=== PATIENT | female | born 1990 | race Two or more races ===

== ENCOUNTER 2024-04-23 08:53 | Outpatient (REF) | payer OTHER, MEDICAID, SELFPAY ==
[2024-04-23 17:57] LABS: MANUAL DIFF FLAG NO
[2024-04-23 18:02] LABS: Basophils Percent Auto 0.4 % (0-2); Eosinophils Absolute Auto 0.2 X10*3/uL (0.0-0.4); Eosinophils Percent Auto 2.3 % (0-4); Hematocrit 37.6 % (37.0-47.0); Hemoglobin 11.9 g/dl (12.0-16.0); Imm Gran Abs Auto 0.07 X10*3/uL (0.00-0.03); Imm Gran Pct Auto 0.9 % (0.0-0.4); Lymphocytes Percent Auto 26.6 % (20-40); Mean Corpuscular HGB Conc 31.6 g/dl (31.0-35.0); Mean Corpuscular Hemoglobin 27.6 pg (27.0-33.0); Mean Corpuscular Volume 87.2 fL (80.0-98.0); Mean Platelet Volume 9.8 fL (9.4-12.3); Monocytes Absolute Auto 0.7 X10*3/uL (0.1-1.2); Monocytes Percent Auto 9.4 % (2-11); Neutrophils Absolute Auto 4.5 x10*3/uL (2.0-8.3); Neutrophils Percent Auto 60.4 % (45-73); Platelet Count 292 X10*3/uL (160-400); Red Blood Count 4.31 X10*6/uL (4.20-5.50); White Blood Count 7.4 X10*3/uL (4.8-10.8)
[2024-04-23 18:17] LABS: Alanine Aminotransferase 40 U/L (0-31); Aspartate Amino Transferase 66 U/L (5-31); C Reactive Protein 1.25 mg/dL (< or = 0.50); Estimated Glomerular Filt Rate > 60
[2024-04-23 18:46] LABS: Rheumatoid Factor 397.1 IU/mL (<15.0)
[2024-04-23 18:52] LABS: Erythrocyte Sedimentation Rate 84 MM/HR (0-20)
[2024-04-24 04:28] LABS: HBS Num1 2.36 mIU/mL (0-7.99); HBc Num1 0.32 S/CO (0.00-0.79); HBsAGNum1 0.38 S/CO (0.00-0.99); Hepatitis B Core Antibody Nonreactive (Nonreactive); Hepatitis B Surface Antigen Negative (Negative); ~HepC Num1 0.18 S/CO (0.00-0.79); ~Hepatitis B Surface Antibody NONREACTIVE (Nonreactive); ~Hepatitis C Antibody Nonreactive (Nonreactive)
[2024-04-24 17:28] LABS: Antibody to SS-A Antigen >8.0 POS AI (<1.0 NEG); Antibody to SS-B Antigen >8.0 POS AI (<1.0 NEG)
[2024-04-26 02:54] LABS: TS Negative Control Passed; TS Panel A 1; TS Panel B 0; TS Positive Control Passed; TSpotTB Negative (Negative)
[2024-04-28 06:48] LABS: Cyclic Citrullinated Peptide >250 UNITS
[2024-04-29 08:28] LABS: Anti Nuclear Antibody Pattern Nuclear, Speckled; Anti Nuclear Antibody Screen POSITIVE (NEGATIVE)
== END 2024-04-23 08:54 | disposition home or self-care (01) ==
LOC: HO.HKASLDS 08:53
PROVIDERS: Visit Provider Internal Medicine Rheumatology
DX: M19.90 Unspecified osteoarthritis, unspecified site (principal); Z79.60 Long term (current) use of unspecified immunomodulators and immunosuppressants; Z11.1 Encounter for screening for respiratory tuberculosis; Z11.59 Encounter for screening for other viral diseases
CPT/HCPCS: 36415; 82565; 84450; 84460; 85025; 85652; 86038; 86039; 86140; 86200; 86235; 86431; 86481; 86704; 86706; 86803; 87340

== ENCOUNTER 2024-04-23 08:53 | Outpatient (AMB) | payer OTHER, MEDICAID, SELFPAY ==
[2024-04-23 09:24] VITALS: BP 130/74; PULSE 102; O2SAT 99; BMI 57.6
--- NOTE | 2024-04-23 09:24 | A.OFFVIS_ITS ---
Vital Signs 04/23/24 09:24 Height 5 ft 7 in Weight 368 lb BMI 57.6 BP 130/74 Blood Pressure Location Lt brachial Position Sitting Pulse 102 H Pulse Source Pulse Oximeter Pulse Oximetry (%) 99 Oxygen Delivery Method Room Air Intake Visit Reasons: Auto Immune Intake Note: Patient presents for follow up on auto immune disease. Allergies hydromorphone Allergy (Mild, Verified 04/23/24 09:30) Anaphylaxis ibuprofen Allergy (Mild, Verified 04/23/24 09:31) Rash HPI HPI Auto Immune: Details: I last saw patient at the [facility] at least 4 years. Patient was diagnosed with autoimmune disease but patient cannot recall. Patient has been scheduled as follow-up visit. I do not have any records from [facility]. Her mother and she became depressed and did not seek medical attention for herself. She has developed swelling in multiple joints and has limited ability to function and care for herself leading to her seeking evaluation. She has used ibuprofen, Aleve and Tylenol with benefit. She has presented to ER and received prednisone with benefit. She denies fevers. She has a facial rash. She has history of asthma with baseline dyspnea but does not report that it has worsened. She also reports that she has pleuritic chest pain. She has developed purplish toes when exposed to cold temperatures. She has dry eyes and dry mouth. Denies oral ulcers. Denies urinary symptoms. She fractured her left ankle a few months ago. She did not see Orthopedic surgery. She used a boot and reports she was able to bear weight on her left foot. It continues to be swollen. [facility] Surgical History (Updated 04/23/24 @ 09:33 by Hansa Quiroz CMA) H/O heart surgery Family History (Updated 04/23/24 @ 09:36 by Hansa Quiroz CMA) Mother Heart failure Diabetes High cholesterol Hypertension Sister Diabetes Heart failure High cholesterol Hypertension Social History (Updated 04/23/24 @ 09:37 by Hansa Quiroz CMA) Household Members: Family Alcohol intake: never Patient Tobacco Use Status: Current everyday Tobacco user Cigarettes Per Day: 2 Review of Systems Const All systems reviewed & are unremarkable except as noted in HPI and below Physical Exam Vital Signs: Last Vital Signs Pulse 102 H 04/23/24 09:24 BP 130/74 04/23/24 09:24 Pulse Ox 99 04/23/24 09:24 Oxygen Delivery Method Room Air 04/23/24 09:24 BMI result Body Mass Index 57.6 Const Other: General: Comfortable CVS: RRR Respiratory: clear to auscultation bilaterally. Good respiratory effort Skin: No lesions seen MSK: Tender to palpate all joints. Synovitis bilateral MCPs, right and left 3rd and right 5th PIP with tenderness with synovitis. Bilateral elbow flexion contractures. Shoulder abduction 80 degrees bilateral with limited internal external rotation both actively and passively. Bilateral ankles synovitis present left worse than right. Bilateral MTP tenderness. Diffuse allodynia of upper extremities and lower extremities. Assessment & Plan Assessment & Plan (1) Inflammatory arthritis: Comment: She has synovitis on exam consistent with inflammatory arthritis. She has sicca symptoms, Raynaud's affecting her feet, and pleurisy. I will start workup for connective tissue disease with labs and x-rays. She had a fracture of her left ankle a few months ago and continues to have chronic swelling affecting her left ankle. I will order stat left ankle x-ray to find out if fracture has healed as it affects future management of her inflammatory arthritis. Code(s): M19.90 - Unspecified osteoarthritis, unspecified site Category: Medical Plan: X-rays ordered Labs ordered Requesting records from [facility] Return to clinic in 2 weeks (2) Ankle fracture, left: Comment: She has chronic swelling of left ankle since fracture of ankle a few months ago. I am ordering x-ray stat to determine if her fracture has healed Code(s): S82.892A - Other fracture of left lower leg, initial encounter for closed fracture Category: Medical Qualifiers: Encounter type: initial encounter Plan: X-ray left ankle ordered stat Return to clinic in 2 weeks (3) Fibromyalgia: Comment: Diffuse allodynia is consistent with fibromyalgia Code(s): M79.7 - Fibromyalgia Category: Medical Plan: Defer management PCP Orders: Orders Erythrocyte Sedimentation Rate Today M19.90 - Unspecified osteoarthritis, unspecified site C Reactive Protein Today M19.90 - Unspecified osteoarthritis, unspecified site Creatinine Today Z79.60 - [facility] (current) use of unspecified immunomodulators and immunosuppressants Sjogren's Antibodies Today M19.90 - Unspecified osteoarthritis, unspecified site Hepatitis B,C Profile Today M19.90 - Unspecified osteoarthritis, unspecified site XR hand RT min 3V Today M19.90 - Unspecified osteoarthritis, unspecified site XR hand LT min 3V Today M19.90 - Unspecified osteoarthritis, unspecified site XR shoulder RT min 2V Today M19.90 - Unspecified osteoarthritis, unspecified site XR foot RT 2V Today M19.90 - Unspecified osteoarthritis, unspecified site XR ankle LT 2V Today S82.892A - Other fracture of left lower leg, initial encounter for closed fracture XR elbow LT 2V Today M19.90 - Unspecified osteoarthritis, unspecified site Alanine Aminotransferase Today Z79.60 - termination clerk (current) use of unspecified immunomodulators and immunosuppressants Aspartate Amino Transferase Today Z79.60 - termination clerk (current) use of unspecified immunomodulators and immunosuppressants Complete Blood Count Auto Diff Today Z79.60 - termination clerk (current) use of unspecified immunomodulators and immunosuppressants LUPE Reflex Titer and Pattern Today M19.90 - Unspecified osteoarthritis, unspecified site Cyclic Citrullinated Peptide Today M19.90 - Unspecified osteoarthritis, unspecified site Rheumatoid Factor Today M19.90 - Unspecified osteoarthritis, unspecified site T Spot TB Today M19.90 - Unspecified osteoarthritis, unspecified site XR shoulder LT min 2V Today M19.90 - Unspecified osteoarthritis, unspecified site XR foot LT 2V Today M19.90 - Unspecified osteoarthritis, unspecified site XR elbow RT 2V Today M19.90 - Unspecified osteoarthritis, unspecified site Coding Level of Care Code New Pt Level 4 (83570) Diagnoses Inflammatory arthritis M19.90 Ankle fracture, left S82.892A Encounter type: initial encounter Fibromyalgia M79.7
== END 2024-04-23 10:12 | disposition home or self-care (01) ==
LOC: HO.RHES 08:53
PROVIDERS: Visit Provider Internal Medicine Rheumatology
DX: M19.90 Unspecified osteoarthritis, unspecified site (principal); S82.892A Other fracture of left lower leg, initial encounter for closed fracture; M79.7 Fibromyalgia
CPT/HCPCS: 99204

== ENCOUNTER 2024-05-01 08:05 | Outpatient (REF) | payer OTHER, SELFPAY ==
--- NOTE | ~2024-05-01 | XR_ITS ---
EXAMINATION: XR HAND, LEFT CLINICAL INFORMATION: M19.90 - Unspecified osteoarthritis, unspecified site COMPARISON: None available. TECHNIQUE: PA, lateral, and oblique views of the left hand. FINDINGS: The bones and soft tissues are normal. No fracture. Alignment is anatomic. Joint spaces are maintained. No erosions or soft tissue calcifications. XR/XR hand LT min 3V IMPRESSION: Normal left hand. Electronically signed by: Han Freitas MD 05/01/2024 10:05 AM SOHAM
--- NOTE | ~2024-05-01 | XR_ITS ---
EXAMINATION: XR SHOULDER, LEFT CLINICAL INFORMATION: M19.90 - Unspecified osteoarthritis, unspecified site COMPARISON: None available. TECHNIQUE: AP external rotation, Grashey, scapular Y, and axillary views of the left shoulder. FINDINGS: The bones and soft tissues are normal. No fracture. Glenohumeral and acromioclavicular alignment is anatomic with normal joint space. No abnormal soft tissue calcifications. XR/XR shoulder LT min 2V IMPRESSION: Normal left shoulder. Electronically signed by: Han Freitas MD 05/01/2024 10:01 AM SOHAM
--- NOTE | ~2024-05-01 | XR_ITS ---
EXAMINATION: XR ANKLE, LEFT CLINICAL INFORMATION: S82.264F - Other fracture of left lower leg, initial encounter for close... COMPARISON: None available. TECHNIQUE: AP, lateral, and mortise views of the left ankle. FINDINGS: Normal bone mineralization. Normal alignment. No definite acute fracture evident. Corticated osseous densities just beneath the lateral malleolus may be degenerative or on the basis of old trauma. There is a medially projecting hooked osteophyte arising from the medial malleolus. The mortise is intact. The talar dome is normal. The subtalar joints and intertarsal joints are normal. There are small to moderate-sized plantar and dorsal calcaneal spurs. No definite ankle joint effusion. There is diffuse soft tissue swelling about the ankle. XR/XR ankle LT 2V IMPRESSION: 1. No definite acute fracture seen. No dislocation. Preserved mortise. 2. Diffuse soft tissue swelling about the ankle. Electronically signed by: Fransisco Lance MD 05/01/2024 10:02 AM SOHAM
--- NOTE | ~2024-05-01 | XR_ITS ---
EXAMINATION: XR ELBOW, LEFT CLINICAL INFORMATION: M19.90 - Unspecified osteoarthritis, unspecified site COMPARISON: None available. TECHNIQUE: AP, lateral, and oblique views of the left elbow. FINDINGS: No fracture, dislocation, or suspicious bone lesion. There is normal alignment of the elbow joint. No significant bony arthrosis or erosion identified. Joint spaces preserved. Epicondyles appear normal. There is an elbow joint effusion present. This may be on the basis of inflammatory synovitis. Soft tissues appear normal. XR/XR elbow LT 2V IMPRESSION: 1. No acute bony abnormalities or evidence of bony changes of inflammatory arthropathy. Normal alignment. 2. Joint effusion present, likely on the basis of inflammatory synovitis in the absence of trauma. Electronically signed by: Fransisco Lance MD 05/01/2024 10:37 AM SOHAM
--- NOTE | ~2024-05-01 | XR_ITS ---
EXAMINATION: XR FOOT, RIGHT CLINICAL INFORMATION: M19.90 - Unspecified osteoarthritis, unspecified site COMPARISON: None available. TECHNIQUE: AP, lateral, and oblique views of the right foot. FINDINGS: Normal bony mineralization. No fracture, dislocation, or suspicious bone lesion. There is normal alignment. There is mild arthritis at the first MTP joint with a subtle punched out appearing periarticular erosion. This may indicate the presence of gout. There is a large plantar calcaneal spur. There is a tiny dorsal spur. Otherwise, the forefoot, midfoot, and hindfoot image normally. No discrete soft tissue abnormalities. XR/XR foot RT 2V IMPRESSION: 1. No acute fracture or dislocation. No malalignment. 2. Mild arthritis in the first MTP joint with a marginal erosion as detailed, suspicious for gouty arthropathy. 3. Large plantar calcaneal enthesophyte. Electronically signed by: Fransisco Lance MD 05/01/2024 10:33 AM SOHAM
--- NOTE | ~2024-05-01 | XR_ITS ---
EXAMINATION: XR FOOT, LEFT CLINICAL INFORMATION: M19.90 - Unspecified osteoarthritis, unspecified site COMPARISON: None available. TECHNIQUE: AP, lateral, and oblique views of the left foot. FINDINGS: The bones and soft tissues are normal. No fracture. Alignment is anatomic. Joint spaces are maintained. There is a small calcaneal heel and retrocalcaneal enthesophytes. XR/XR foot LT 2V IMPRESSION: No acute fracture or dislocation. Small calcaneal heel and retrocalcaneal enthesophytes. Electronically signed by: Han Freitas MD 05/01/2024 10:02 AM SOHAM QURESHI
--- NOTE | ~2024-05-01 | XR_ITS ---
EXAMINATION: XR HAND, RIGHT CLINICAL INFORMATION: M19.90 - Unspecified osteoarthritis, unspecified site COMPARISON: None available. TECHNIQUE: PA, lateral, and oblique views of the right hand. FINDINGS: The bones and soft tissues are normal. No fracture. Alignment is anatomic. Joint spaces are maintained. No erosions or soft tissue calcifications. XR/XR hand RT min 3V IMPRESSION: Unremarkable right hand. Electronically signed by: Han Freitas MD 05/01/2024 10:04 AM SOHAM
--- NOTE | ~2024-05-01 | XR_ITS ---
EXAMINATION: XR SHOULDER, RIGHT CLINICAL INFORMATION: M19.90 - Unspecified osteoarthritis, unspecified site COMPARISON: None available. TECHNIQUE: AP external rotation, Grashey, scapular Y, and axillary views of the right shoulder. FINDINGS: The bones and soft tissues are normal. No fracture. Glenohumeral and acromioclavicular alignment is anatomic with normal joint space. No abnormal soft tissue calcifications. XR/XR shoulder RT min 2V IMPRESSION: Unremarkable right shoulder. Electronically signed by: Han Freitas MD 05/01/2024 10:01 AM SOHAM
--- NOTE | ~2024-05-01 | XR_ITS ---
EXAMINATION: XR ELBOW, RIGHT CLINICAL INFORMATION: M19.90 - Unspecified osteoarthritis, unspecified site COMPARISON: None available. TECHNIQUE: AP, lateral, and oblique views of the right elbow. FINDINGS: The bones and soft tissues are normal. No fracture or joint effusion. Alignment is anatomic. Joint spaces are maintained. There is a small enthesophyte along the anterior coronoid process XR/XR elbow RT 2V IMPRESSION: Normal right elbow. Electronically signed by: Han Freitas MD 05/01/2024 10:03 AM SOHAM QURESHI
== END 2024-05-01 08:06 | disposition home or self-care (01) ==
LOC: HO.XRAY 08:05
PROVIDERS: Visit Provider Internal Medicine Rheumatology
DX: M19.90 Unspecified osteoarthritis, unspecified site (principal); S82.892A Other fracture of left lower leg, initial encounter for closed fracture; M25.40 Effusion, unspecified joint
CPT/HCPCS: 73030; 73070; 73130; 73600; 73620

== ENCOUNTER → 2024-05-01 08:12 | Outpatient (BNV) | payer OTHER, SELFPAY | PROVIDERS: Visit Provider Radiology Diagnostic Radiology | DX: M19.011 Primary osteoarthritis, right shoulder (principal); M19.012 Primary osteoarthritis, left shoulder; M19.041 Primary osteoarthritis, right hand; M19.042 Primary osteoarthritis, left hand; M19.021 Primary osteoarthritis, right elbow; M19.022 Primary osteoarthritis, left elbow; S82.892A Other fracture of left lower leg, initial encounter for closed fracture; M19.071 Primary osteoarthritis, right ankle and foot; M19.072 Primary osteoarthritis, left ankle and foot | CPT/HCPCS: 73030; 73070; 73130; 73600; 73620 ==

== ENCOUNTER 2024-05-08 10:18 | Outpatient (REF) | payer OTHER, MEDICAID, SELFPAY ==
[2024-05-08 17:51] LABS: Appearance Urine Cloudy; Color Urine Yellow; Glucose Urine UA Negative (Negative); Leukocyte Esterase Urine Negative (Negative); Nitrite Urine Negative (Negative); UMIC TRIGGER UA YES; Urine Blood Small (1+) (Negative); Urine Ketones Negative (Negative); Urine Protein 100 (2+) mg/dL (Neg-Trace)
[2024-05-08 18:09] LABS: Bacteria Urine 2+ (None Seen); Hyaline Casts Urine 0-2 /LPF (0-2); RBC Urine 0-2 /HPF (0-2); WBC Urine 0-5 /HPF (0-5)
[2024-05-08 18:17] LABS: Creatinine Urine 146.48 mg/dL; Protein/Creatinine Ratio, Ur 0.42 (<0.2); Total Protein Urine Random 62 mg/dL (<12)
[2024-05-08 18:48] LABS: Alanine Aminotransferase 46 U/L (0-31); Alkaline Phosphatase 49 U/L (39-117); Aspartate Amino Transferase 64 U/L (5-31); Bilirubin Direct < 0.2 mg/dL (0.0-0.5); Bilirubin Total 0.2 mg/dL (0.0-1.0); Total Protein 8.9 g/dL (6.5-8.0)
[2024-05-09 12:33] LABS: Complement C3 169 mg/dL (83-193)
[2024-05-09 16:33] LABS: Anti DNA DS Antibody <1 IU/mL; SM/Ribonucleoprotein Ab <1.0 NEG AI (<1.0 NEG); Smith Protein <1.0 NEG AI (<1.0 NEG)
[2024-05-17 15:33] LABS: Glucose-6-Phosphate Dehydrogen 21.3 U/g Hgb (7.0-20.5)
== END 2024-05-08 10:19 | disposition home or self-care (01) ==
LOC: HO.HKASLDS 10:18
PROVIDERS: Visit Provider Internal Medicine Rheumatology
DX: R74.01 Elevation of levels of liver transaminase levels (principal); M19.90 Unspecified osteoarthritis, unspecified site; R35.0 Frequency of micturition
CPT/HCPCS: 36415; 80076; 81001; 82570; 82955; 84156; 86160; 86225; 86235; 87086

== ENCOUNTER 2024-05-08 10:18 | Outpatient (AMB) | payer OTHER, MEDICAID, SELFPAY ==
[2024-05-08 10:30] VITALS: BP 130/80; PULSE 98; O2SAT 99; BMI 57.0
--- NOTE | 2024-05-08 10:30 | A.OFFVIS_ITS ---
Vital Signs 05/08/24 10:30 Height 5 ft 7 in Weight 364 lb 4 oz BMI 57.0 BP 130/80 Blood Pressure Location Lt brachial Position Sitting Pulse 98 Pulse Source Pulse Oximeter Pulse Oximetry (%) 99 Oxygen Delivery Method Room Air Intake Visit Reasons: 2 WKS F/U Intake Note: Patient presents for follow up on inflammatory arthritis and left ankle fracture. She was last seen by Dr. Lopez on 04/23/2024. Also, labs and x-rays. Patient would like to talk about PT 1 form. Allergies hydromorphone Allergy (Mild, Verified 04/23/24 09:30) Anaphylaxis ibuprofen Allergy (Mild, Verified 04/23/24 09:31) Rash HPI HPI 2 WKS F/U: Details: She has not had any difference on prednisone. She continues to have joint pain and swelling. She has a history of prediabetes and feels that her blood sugars are elevated. She does not have a glucometer at home to check. She is on metformin prescribed by her PCP for prediabetes. Since being on prednisone her GERD symptoms have worsened. In the past she was on PPI without benefit. [facility] Surgical History (Updated 04/23/24 @ 09:33 by Hansa Quiroz CMA) H/O heart surgery Family History (Updated 04/23/24 @ 09:36 by Hansa Quiroz CMA) Mother Heart failure Diabetes High cholesterol Hypertension Sister Diabetes Heart failure High cholesterol Hypertension Social History (Updated 04/23/24 @ 09:37 by Hansa Quiroz CMA) Household Members: Family Alcohol intake: never Patient Tobacco Use Status: Current everyday Tobacco user Cigarettes Per Day: 2 Review of Systems Const All systems reviewed & are unremarkable except as noted in HPI and below Physical Exam Vital Signs: Last Vital Signs Pulse 98 05/08/24 10:30 BP 130/80 05/08/24 10:30 Pulse Ox 99 05/08/24 10:30 Oxygen Delivery Method Room Air 05/08/24 10:30 BMI result Body Mass Index 57.0 Const Other: General: Comfortable CVS: RRR Respiratory: clear to auscultation bilaterally. Good respiratory effort Skin: No lesions seen MSK: Tender to palpate all joints. Synovitis bilateral MCPs, right and left 3rd and right 5th PIP with tenderness with synovitis. Bilateral elbow flexion contractures. Shoulder abduction 90 degrees bilateral with limited internal external rotation both actively and passively. Bilateral ankles synovitis present left worse than right. Bilateral MTP tenderness. Diffuse allodynia of upper extremities and lower extremities. Assessment & Plan Assessment & Plan (1) Inflammatory arthritis: Comment: She has synovitis on exam consistent with inflammatory arthritis. She has sicca symptoms, Raynaud's affecting her feet, and pleurisy. Laboratory workup has revealed positive LUPE high titer, SSA/SSB antibody positivity. We discussed her diagnosis of Sjogren syndrome with associated inflammatory arthritis. I will further workup for systemic lupus erythematosus with more specific antibodies and disease activity markers to further define her disease. She is experiencing GERD and feels that her blood sugars are elevated on current dose of prednisone 15 mg daily. She does require higher dose of prednisone to control inflammatory arthritis in the short term until I am able to add steroid sparing agent. I have asked her to communicate with PCP to obtain glucometer and management of diabetes. I will also start GI prophylaxis on prednisone with famotidine in setting of her elevated liver enzymes. [facility] records reviewed and reveal recent CT abd shows moderate fat containing umbilical hernia with trace adjacent stranding that may indicate incarceration or strangulation of the associated fat. Hepatic steatosis. She will be following up with surgeon. Rheumatology history from medical records received [facility]: She was previously evaluated by me at the [facility] when she was 21 weeks gestation. She was found to have high titer positive LUPE 1:1280, positive anti SSA and SSB antibodies and highly elevated ESR. She did not have any lupus specific antibodies or activity markers at the time. 01/2020 she was referred to ENT for minor salivary gland biopsy as she had malar rash, hair loss and dry mouth. Patient was lost to follow-up. Code(s): M19.90 - Unspecified osteoarthritis, unspecified site Category: Medical Plan: She will increase prednisone to 40 mg daily for 1 week then 30 mg daily for 1 week then 20 mg daily for 1 week then remain on 10 mg daily until follow-up visit PCP follow-up for diabetes management Start famotidine 10 mg b.i.d. for GI prophylaxis. She will call office if GERD symptoms are unchanged. I will then increase famotidine to 20 mg b.i.d. I recommended that she try Biotene products to help control dry mouth OTC Labs ordered this visit I will start hydroxychloroquine 400 mg daily after lab results are back. I am avoiding methotrexate and leflunomide due to background history of hepatic steatosis with mild transaminitis. (2) Urinary frequency: Code(s): R35.0 - Frequency of micturition Category: Medical Plan: Urine studies ordered with urine culture Orders: Orders Complement C4 05/08/24 - Unspecified osteoarthritis, unspecified site Sm Sm/[employer] Antibodies 05/08/24 M1 - Unspecified osteoarthritis, unspecified site Anti DNA DS Antibody 05/08/24 M1 - Unspecified osteoarthritis, unspecified site, R74.01 - Elevation of levels of liver transaminase levels Protein Creatinine Ratio, Ur 05/08/24 - Unspecified osteoarthritis, unspecified site UA w Microscopic 05/08/24 - Unspecified osteoarthritis, unspecified site Urine Culture 05/08/24 R35.0 - Frequency of micturition Complement C3 05/08/24 - Unspecified osteoarthritis, unspecified site Liver Panel 05/08/24 R74.01 - Elevation of levels of liver transaminase levels [id number] Dehydrogen 05/08/24 - Unspecified osteoarthritis, unspecified site Medications: New famotidine 10 mg PO BID 60 tabs 2RF prednisone Take 4 tablets daily 1 week, 3 tablets daily 1 week, 2 tablets daily 1 week then remain on 1 tablet daily 10 mg PO DIRECTED 70 tabs 0RF Coding Level of Care Code Est Pt Level 5 (02989) Complex EM visit Add On G2211 Diagnoses Inflammatory arthritis Urinary frequency R35.0 Time Spent (min) 40
== END 2024-05-08 11:18 | disposition home or self-care (01) ==
PROVIDERS: Visit Provider Internal Medicine Rheumatology
DX: M19.90 Unspecified osteoarthritis, unspecified site (principal); R35.0 Frequency of micturition
CPT/HCPCS: 99215

== ENCOUNTER 2024-08-13 08:34 | Outpatient (AMB) | payer OTHER, MEDICAID, SELFPAY ==
--- NOTE | 2024-08-13 09:30 | MHC.OFFVIS ---
Vital Signs 08/13/24 09:31 Height 5 ft 7 in Weight 382 lb 4.505 oz BMI 59.9 BP 126/82 Blood Pressure Location Lt brachial Position Sitting Pulse 106 H Pulse Source Pulse Oximeter Pulse Oximetry (%) 100 Oxygen Delivery Method Room Air Intake Visit Reasons: intra-articular cortisone injection Intake Note: Patient presents for follow up on inflammatory arthritis and left ankle fracture. Allergies hydromorphone Allergy (Mild, Verified 08/13/24 09:31) Anaphylaxis ibuprofen Allergy (Mild, Verified 08/13/24 09:31) Rash HPI HPI intra-articular cortisone injection: Details: Cough since having influenza few months is causing increase pain in joints like her shoulders. Cough is worse at night. Hx asthma. She has reduction on pain on prednisone as it is more manageable. She continues to have joint swelling. Last dose of prednisone 10 mg daily was yesterday. Denies recent infection. PFSH Surgical History H/O heart surgery Family History Mother Heart failure Diabetes High cholesterol Hypertension Sister Diabetes Heart failure High cholesterol Hypertension Social History Household Members: Family Alcohol intake: never Patient Tobacco Use Status: Current everyday Tobacco user Cigarettes Per Day: 2 Physical Exam Vital Signs: Last Vital Signs Pulse 106 H 08/13/24 09:31 BP 126/82 08/13/24 09:31 Pulse Ox 100 08/13/24 09:31 Oxygen Delivery Method Room Air 08/13/24 09:31 BMI result Body Mass Index 59.9 Const Other: General: Comfortable CVS: RRR Respiratory: clear to auscultation bilaterally. Good respiratory effort Skin: No lesions seen MSK: Synovitis bilateral MCPs. Tender right 2nd PIP with synovitis. Tender left 2nd to 5th MCP and PIP. Tender bilateral wrists. Synovitis of left elbow. Bilateral elbow flexion contractures. Shoulder abduction 90 degrees bilateral with limited internal external rotation both actively and passively. Bilateral ankles synovitis present left worse than right. Bilateral MTP tenderness. Results Reviewed Results Reviewed: Medical records and [facility] [place]. Last Hemoglobin A1c is 6.08 September 2021. POC hemoglobin A1c in 10/01/[address] abdomen pelvis with IV contrast May 2024 and June 2024 liver is unremarkable without gallbladder pathology. CT abdomen pelvis with IV contrast April 2024. IMPRESSION: 1. Mild acute uncomplicated diverticulitis of the descending sigmoid junction. 2. Moderate fat-containing umbilical hernia with trace adjacent stranding that may indicate incarceration or strangulation of the associated fat. No bowel involvement. Correlation with symptoms and examination recommended. 3. Hepatic steatosis. Assessment & Plan Assessment & Plan (1) Seropositive rheumatoid arthritis: Comment: Inflammatory arthritis is uncontrolled. High disease activity per CDAI 35. She has up trending transaminitis. She has had multiple CT abdomen/pelvis with IV contrast since April 2024 at [facility]. April CT abdomen/pelvis reveals hepatic steatosis but repeat CTs in May and June 2024 do not reveal liver or gallbladder pathology to explain transaminitis. Contraindication to methotrexate and leflunomide due to transaminitis. We discussed DMARD therapy. Double therapy with hydroxychloroquine and sulfasalazine is indicated. 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 She was previously evaluated by me at the [facility] when she was 21 weeks gestation. She was found to have high titer positive LUPE 1:1280, positive anti SSA and SSB antibodies and highly elevated ESR. She did not have any lupus specific antibodies or activity markers at the time. 01/2020 she was referred to ENT for minor salivary gland biopsy as she had malar rash, hair loss and dry mouth. Patient was lost to follow-up. Code(s): M05.9 - Rheumatoid arthritis with rheumatoid factor, unspecified Category: Medical Plan: Ultrasound abdomen with elastography ordered GI referral for evaluation of transaminitis Start hydroxychloroquine 400 mg daily Start sulfasalazine 500 mg twice a day Labs due in 1 month for drug monitoring: CBC, creatinine, AST, ALT. I will also obtain inflammatory markers in 1 month to assess disease activity. Increase prednisone to 15 mg daily Return to clinic in 2 months (2) On prednisone therapy: Comment: She has history of prediabetes on metformin. Last POC hemoglobin A1c in [facility] is from 10/01/2023 6.4. Code(s): Z79.52 - intermediate manager (current) use of systemic steroids Category: Medical Plan: Hemoglobin A1c ordered I recommend close follow up with PCP for prediabetes management on long-term glucocorticoid treatment. She will benefit from glucometer to monitor her blood sugars. (3) Secondary Sjogren's syndrome: Code(s): M35.00 - Sjogren syndrome, unspecified Category: Medical Plan: I will address next visit (4) Hepatic steatosis: Comment: On CT abdomen and pelvis with contrast April 2024 but not present on repeat CT scans May and June. Code(s): K76.0 - Fatty (change of) liver, not elsewhere classified Category: Medical Plan: See above (5) Prediabetes: Code(s): R73.03 - Prediabetes Category: Medical Plan: See above (6) Transaminitis: Code(s): R74.01 - Elevation of levels of liver transaminase levels Category: Medical Plan: See above Orders: Orders Alanine Aminotransferase Today M190 - Unspecified osteoarthritis, unspecified site, M35.00 - Sjogren syndrome, unspecified, R76.8 - Other specified abnormal immunological findings in serum Aspartate Amino Transferase Today M1 - Unspecified osteoarthritis, unspecified site, M35.00 - Sjogren syndrome, unspecified, R76.8 - Other specified abnormal immunological findings in serum Creatinine Today 90 - Unspecified osteoarthritis, unspecified site, M35.00 - Sjogren syndrome, unspecified, R76.8 - Other specified abnormal immunological findings in serum C Reactive Protein Today 90 - Unspecified osteoarthritis, unspecified site, M35.00 - Sjogren syndrome, unspecified, R76.8 - Other specified abnormal immunological findings in serum Rheumatoid Factor Today 90 - Unspecified osteoarthritis, unspecified site, M35.00 - Sjogren syndrome, unspecified, R76.8 - Other specified abnormal immunological findings in serum Protein Electrophoresis, Serum Today 990 - Unspecified osteoarthritis, unspecified site, M35.00 - Sjogren syndrome, unspecified, R76.8 - Other specified abnormal immunological findings in serum Anti DNA DS Antibody Today - Unspecified osteoarthritis, unspecified site, R76.8 - Other specified abnormal immunological findings in serum UA w Microscopic Today - Unspecified osteoarthritis, unspecified site, R76.8 - Other specified abnormal immunological findings in serum Hemoglobin A1c Today Z79.52 - intermediate manager (current) use of systemic steroids Gamma Glutamyl Transpeptidase Today R74.01 - Elevation of levels of liver transaminase levels Alanine Aminotransferase 1 Month M05.9 - Rheumatoid arthritis with rheumatoid factor, unspecified, Z79.60 - intermediate manager (current) use of unspecified immunomodulators and immunosuppressants Creatinine 1 Month M05.9 - Rheumatoid arthritis with rheumatoid factor, unspecified, Z79.60 - intermediate manager (current) use of unspecified immunomodulators and immunosuppressants C Reactive Protein 1 Month M05.9 - Rheumatoid arthritis with rheumatoid factor, unspecified Complete Blood Count Man Dif Today M19.90 - Unspecified osteoarthritis, unspecified site, M35.00 - Sjogren syndrome, unspecified, R76.8 - Other specified abnormal immunological findings in serum Erythrocyte Sedimentation Rate Today M19.90 - Unspecified osteoarthritis, unspecified site, M35.00 - Sjogren syndrome, unspecified, R76.8 - Other specified abnormal immunological findings in serum Complement C3 Today M19.90 - Unspecified osteoarthritis, unspecified site, M35.00 - Sjogren syndrome, unspecified, R76.8 - Other specified abnormal immunological findings in serum Complement C4 Today M19.90 - Unspecified osteoarthritis, unspecified site, M35.00 - Sjogren syndrome, unspecified, R76.8 - Other specified abnormal immunological findings in serum Protein Creatinine Ratio, Ur Today M19.90 - Unspecified osteoarthritis, unspecified site, R76.8 - Other specified abnormal immunological findings in serum Bilirubin Total Today R74.01 - Elevation of levels of liver transaminase levels Bilirubin Direct Today R74.01 - Elevation of levels of liver transaminase levels Alkaline Phosphatase Today R74.01 - Elevation of levels of liver transaminase levels Aspartate Amino Transferase 1 Month M05.9 - Rheumatoid arthritis with rheumatoid factor, unspecified, Z79.60 - skilled nursing (current) use of unspecified immunomodulators and immunosuppressants Complete Blood Count Auto Diff 1 Month M05.9 - Rheumatoid arthritis with rheumatoid factor, unspecified, Z79.60 - skilled nursing (current) use of unspecified immunomodulators and immunosuppressants Erythrocyte Sedimentation Rate 1 Month M05.9 - Rheumatoid arthritis with rheumatoid factor, unspecified Referrals Gastroenterology Referral R74.01 - Elevation of levels of liver transaminase levels Medications: New hydroxychloroquine Labs due in 1 month at [facility] lab 400 mg (2 x 200 mg) PO DAILY 180 tabs 0RF 90 days sulfasalazine Labs due in 1 month at [facility] lab 0.5 grams PO BID 60 tabs 0RF 30 days Changed From prednisone Take with food 15 mg (3 x 5 mg) PO DAILY 90 tabs 0RF To prednisone Take with food 15 mg (3 x 5 mg) PO DAILY 270 tabs 0RF 90 days From famotidine 10 mg PO BID 60 tabs 2RF To famotidine Take with prednisone. 10 mg PO BID 180 tabs 1RF 90 days Discontinued prednisone Refilled to get to next appointment Take 1 tablet daily Discontinued Reason: Doctor's Order 10 mg PO DIRECTED 20 tabs 0RF Coding Level of Care Code Est Pt Level 5 (97977) Complex EM visit Add On G2211 Diagnoses Seropositive rheumatoid arthritis M05.9 On prednisone therapy Z79.52 Secondary Sjogren's syndrome M35.00 Hepatic steatosis K76.0 Prediabetes R73.03 Transaminitis R74.01 Time Spent (min) 40
[2024-08-13 09:31] VITALS: BP 126/82; PULSE 106; O2SAT 100; BMI 59.9
== END 2024-08-13 10:23 | disposition home or self-care (01) ==
LOC: HO.RHES 08:34
PROVIDERS: PCP Internal Medicine; Visit Provider Internal Medicine Rheumatology
DX: M05.9 Rheumatoid arthritis with rheumatoid factor, unspecified (principal); Z79.52 Long term (current) use of systemic steroids; M35.00 Sjogren syndrome, unspecified; K76.0 Fatty (change of) liver, not elsewhere classified; R73.03 Prediabetes; R74.01 Elevation of levels of liver transaminase levels
CPT/HCPCS: 99215

== ENCOUNTER 2024-08-13 08:34 | Outpatient (REF) | payer OTHER, SELFPAY ==
[2024-08-13 18:16] LABS: Baso%MD 0.4 %; Eos%MD 1.6 %; Hematocrit 38.4 % (37.0-47.0); Hemoglobin 12.4 g/dl (12.0-16.0); IG%MD 1.8 %; Lymph%MD 19.1 %; Mean Corpuscular HGB Conc 32.3 g/dl (31.0-35.0); Mean Corpuscular Hemoglobin 27.4 pg (27.0-33.0); Mean Platelet Volume 10.3 fL (9.4-12.3); Mono%MD 6.9 %; Neut%MD 70.2 %; Platelet Count 311 X10*3/uL (160-400); Red Blood Count 4.52 X10*6/uL (4.20-5.50); Red Cell Distribution Width 14.7 % (11.0-16.0); White Blood Count 8.4 X10*3/uL (4.8-10.8)
[2024-08-13 18:34] LABS: Alanine Aminotransferase 52 U/L (0-31); Aspartate Amino Transferase 109 U/L (5-31); C Reactive Protein 1.94 mg/dL (< or = 0.50); Estimated Glomerular Filt Rate > 60
[2024-08-13 18:45] LABS: Band Neutrophils Percent 14 % (3-5); Eosinophils Absolute Manual 0.1 X10*3/uL (0.0-0.4); Eosinophils Percent Manual 1 % (0-4); Lymphocytes Absolute Manual 1.3 X10*3/uL (1.2-4.9); Lymphocytes Percent Manual 16 % (20-40); Metamyelocytes Absolute 0.1 X10*3/uL; Metamyelocytes Percent 1 %; Monocytes Absolute Manual 0.5 X10*3/uL (0.1-1.2); Monocytes Percent Manual 6 % (2-11); Neutrophils Absolute Manual 6.4 X10*3/uL (2.0-8.3); Neutrophils Percent Manual 62 % (45-73)
[2024-08-13 18:46] LABS: Platelet Estimate NORMAL (NORMAL); Platelet Morphology Comment NORMAL; RBC Morphology NOTED; Toxic Vacuolation PRESENT
[2024-08-13 18:56] LABS: Erythrocyte Sedimentation Rate 91 MM/HR (0-20)
[2024-08-13 19:04] LABS: Rheumatoid Factor 369.5 IU/mL (<15.0)
[2024-08-14 05:27] LABS: Estimated Average Glucose 192 mg/dL; Hemoglobin A1C 219.9212 umol/L; Hemoglobin A1c % 8.3 % (<6.0); Total Hemoglobin (HGBA1C) 3251.7574 umol/L
[2024-08-14 10:53] LABS: Prot Elec - Albumin 2.7 g/dL (3.8-4.8); Prot Elec - Alpha1 0.3 g/dL (0.2-0.3); Prot Elec - Alpha2 0.9 g/dL (0.5-0.9); Prot Elec - Beta 1 0.6 g/dL (0.4-0.6); Prot Elec - Beta 2 1.1 g/dL (0.2-0.5); Prot Elec - Gamma 2.4 g/dL (0.8-1.7)
[2024-08-14 21:24] LABS: Anti DNA DS Antibody 1 IU/mL
[2024-08-15 03:58] LABS: Complement C3 190 mg/dL (83-193)
[2024-08-21 08:44] LABS: IgA 1822 mg/dL (47-310); IgG 2363 mg/dL (600-1640); IgM 90 mg/dL (50-300)
== END 2024-08-13 08:35 | disposition home or self-care (01) ==
LOC: HO.HKASLDS 08:34
PROVIDERS: PCP Internal Medicine; Visit Provider Internal Medicine Rheumatology
DX: M05.9 Rheumatoid arthritis with rheumatoid factor, unspecified (principal); M35.00 Sjogren syndrome, unspecified; M19.90 Unspecified osteoarthritis, unspecified site; Z79.52 Long term (current) use of systemic steroids; K76.0 Fatty (change of) liver, not elsewhere classified; R73.03 Prediabetes; R74.01 Elevation of levels of liver transaminase levels
CPT/HCPCS: 36415; 82565; 82784; 83036; 84165; 84450; 84460; 85007; 85027; 85652; 86140; 86160; 86225; 86334; 86431

== ENCOUNTER 2024-10-23 12:23 | Outpatient (AMB) | payer OTHER, SELFPAY ==
--- NOTE | 2024-10-23 12:40 | MHC.OFFVIS ---
Vital Signs 10/23/24 12:41 Height 5 ft 7 in Weight 396 lb BMI 62.0 BP 132/80 Blood Pressure Location Lt brachial Position Sitting Pulse 101 H Pulse Source Pulse Oximeter Pulse Oximetry (%) 98 Oxygen Delivery Method Room Air Intake Visit Reasons: 2 Months Intake Note: Patient presents for 2 month follow up, she complains of bilateral foot pain, and bumps on side of right leg today. She states she could not make it to her liver ultrasound, would like to discuss that. Allergies hydromorphone Allergy (Mild, Verified 10/23/24 12:43) Anaphylaxis ibuprofen Allergy (Mild, Verified 10/23/24 12:43) Rash HPI HPI 2 Months: Details: After last visit she was able to function and be active. She was able to ambulate with decrease pain. Swelling in hands have improved. In the last month she has had increase swelling in her feet and ankles limiting mobility. She was unable to obtain labs for drug monitoring after starting sulfasalazine because she did not have transportation. She continues to take hydroxychloroquine and prednisone 15 mg daily. She is coughing at night. She continues to have GERD. Asthma is uncontrolled and she is using albuterol inhaler. She does not have nebulizer, which has benefitted her in the past. She has an appointment to follow up with PCP for diabetes control. She is now on metformin. [facility] Surgical History H/O heart surgery Family History Mother Heart failure Diabetes High cholesterol Hypertension Sister Diabetes Heart failure High cholesterol Hypertension Social History Household Members: Family Alcohol intake: never Patient Tobacco Use Status: Current everyday Tobacco user Cigarettes Per Day: 2 Physical Exam Vital Signs: Last Vital Signs Pulse 101 H 10/23/24 12:41 BP 132/80 10/23/24 12:41 Pulse Ox 98 10/23/24 12:41 Oxygen Delivery Method Room Air 10/23/24 12:41 BMI result Body Mass Index 62.0 Const Other: General: Comfortable, wheezing when she talks CVS: RRR Respiratory: clear to auscultation bilaterally. Good respiratory effort Skin: No lesions seen MSK: Synovitis right MCPs. Tender left MCPs, PIP with synovitis of left 2nd to 3rd MCP and 2nd PIP. Bilateral elbow flexion contractures. Shoulder abduction 160 degrees bilateral with limited internal external rotation both actively and passively. Bilateral ankles and l MTP synovitis with tenderness on palpation. Office Meds methylprednisolone acetate 80 mg/mL suspension for injection Performing Provider: Manas Lopez MD Performing Location: [facility] [place] Rheumatology-[facility] Administered by: Selena Tavarez RN on 10/23/24 15:06 Dose Route Admin Location Dispensed Lot Number Expiration Date [facility] Coagulating Drying Supervisor 80 mg IM Left deltoid 1 mL [id number] 04/08/26 [id number] [employer] Total Dispensed Waste 1 mL 0 % Assessment & Plan Assessment & Plan (1) Seropositive rheumatoid arthritis: Comment: Inflammatory arthritis in hands has improved but she has developed progression with involvement in ankles and foot. She had benefit when on double therapy with sulfasalazine hydroxychloroquine. She could not continue sulfasalazine because she was unable to obtain labs for drug monitoring. Transaminitis is trending up. She has had multiple CT abdomen/pelvis with IV contrast since April 2024 at [facility]. April CT abdomen/pelvis reveals hepatic steatosis but repeat CTs in May and June 2024 do not reveal liver or gallbladder pathology to explain transaminitis. Contraindication to methotrexate and leflunomide due to transaminitis. She has an upcoming appointment with GI for further evaluation. 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 She was previously evaluated by me at the [facility] when she was 21 weeks gestation. She was found to have high titer positive LUPE 1:1280, positive anti SSA and SSB antibodies and highly elevated ESR. She did not have any lupus specific antibodies or activity markers at the time. 01/2020 she was referred to ENT for minor salivary gland biopsy as she had malar rash, hair loss and dry mouth. Patient was lost to follow-up. Code(s): M05.9 - Rheumatoid arthritis with rheumatoid factor, unspecified Category: Medical Plan: Depo-Medrol IM 80 mg today GI referral for evaluation of transaminitis scheduled for January 2025 Continue hydroxychloroquine 400 mg daily. I have asked her to schedule baseline eye exam for hydroxychloroquine surveillance Start sulfasalazine 500 mg twice a day Labs due in 1 month for drug monitoring: CBC, creatinine, AST, ALT. I will also obtain inflammatory markers in 1 month to assess disease activity. Continue prednisone to 15 mg daily She will call in 1 month for clinical update. I will consider increasing sulfasalazine to a 1000 mg twice a day She will call office when her address is updated with [place] for us to help her obtain PT1 transportation to her appointments to both my office and [facility] Return to clinic in 3 months (2) On prednisone therapy: Comment: She has diabetes hemoglobin A1c 8.3 08/2024. 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 Code(s): K76.0 - Fatty (change of) liver, not elsewhere classified Category: Medical Plan: I have asked her to reschedule liver ultrasound for further evaluation. Patient had to miss appointment because she did not have transportation. GI new patient evaluation scheduling January 2025 (5) Transaminitis: Code(s): R74.01 - Elevation of levels of liver transaminase levels Category: Medical Plan: See above (6) Cough: Comment: Exacerbated at night. Differential diagnosis includes GERD and uncontrolled asthma. She reports that GERD is not controlled, which may be exacerbated with long-term prednisone use. Code(s): R05.9 - Cough, unspecified Category: Medical Qualifiers: Cough type: chronic Qualified Code(s): R05.3 - Chronic cough Plan: I have increased famotidine to 20 mg twice a day for treatment of GERD while she is on prednisone Follow up with PCP for management of asthma for optimization of medical management. She has found relief with using nebulizer in the past Orders: Orders Alanine Aminotransferase Today M05.9 - Rheumatoid arthritis with rheumatoid factor, unspecified, Z79.899 - Other termite exterminator helper (current) drug therapy Aspartate Amino Transferase Today M05.9 - Rheumatoid arthritis with rheumatoid factor, unspecified, Z79.899 - Other termite exterminator helper (current) drug therapy C Reactive Protein Today M05.9 - Rheumatoid arthritis with rheumatoid factor, unspecified, Z79.899 - Other half-way (current) drug therapy Complete Blood Count Man Dif Today M05.9 - Rheumatoid arthritis with rheumatoid factor, unspecified, Z79.899 - Other half-way (current) drug therapy Creatinine Today M05.9 - Rheumatoid arthritis with rheumatoid factor, unspecified, Z79.899 - Other half-way (current) drug therapy Erythrocyte Sedimentation Rate Today M05.9 - Rheumatoid arthritis with rheumatoid factor, unspecified, Z79.899 - Other termite exterminator helper (current) drug therapy AMB Methylprednisolone Acetate Injection Today M05.9 - Rheumatoid arthritis with rheumatoid factor, unspecified, M35.00 - Sjogren syndrome, unspecified Medications: New famotidine Increase dose 20 mg PO BID 180 tabs 1RF 90 days Refilled sulfasalazine Labs due in 1 month at [facility] lab 0.5 grams PO BID 60 tabs 0RF 30 days hydroxychloroquine Labs due in 1 month at [facility] lab 400 mg (2 x 200 mg) PO DAILY 180 tabs 0RF 90 days Discontinued famotidine Take with prednisone. Discontinued Reason: Doctor's Order 10 mg PO BID 90 days 180 tabs 1RF Coding Level of Care Code Est Pt Level 4 (19100) Complex EM visit Add On G2211 Diagnoses Seropositive rheumatoid arthritis M05.9 On prednisone therapy Z79.52 Secondary Sjogren's syndrome M35.00 Hepatic steatosis K76.0 Transaminitis R74.01 Chronic cough R05.3 Cough type: chronic
[2024-10-23 12:41] VITALS: BP 132/80; PULSE 101; O2SAT 98; BMI 62.0
== END 2024-10-23 14:10 | disposition home or self-care (01) ==
LOC: HO.RHES 12:24
PROVIDERS: PCP Internal Medicine; Visit Provider Internal Medicine Rheumatology
DX: M05.9 Rheumatoid arthritis with rheumatoid factor, unspecified (principal); Z79.52 Long term (current) use of systemic steroids; M35.00 Sjogren syndrome, unspecified; K76.0 Fatty (change of) liver, not elsewhere classified; R74.01 Elevation of levels of liver transaminase levels; R05.3 Chronic cough
CPT/HCPCS: 99214; G2211

== ENCOUNTER → 2024-10-23 12:23 | Outpatient (BNVA) | payer OTHER, SELFPAY | PROVIDERS: PCP Internal Medicine; Visit Provider Internal Medicine Rheumatology | DX: M05.79 Rheumatoid arthritis with rheumatoid factor of multiple sites without organ or systems involvement (principal); M35.00 Sjogren syndrome, unspecified; K76.0 Fatty (change of) liver, not elsewhere classified; R74.01 Elevation of levels of liver transaminase levels; R05.3 Chronic cough; Z79.52 Long term (current) use of systemic steroids | CPT/HCPCS: 96372; 99212; J1010 ==

== ENCOUNTER 2025-01-14 13:18 | Outpatient (REF) | payer OTHER, SELFPAY ==
[2025-01-14 18:26] LABS: MANUAL DIFF FLAG NO
[2025-01-14 18:32] LABS: Baso%MD 0.3 %; Eos%MD 2.7 %; Hematocrit 36.4 % (37.0-47.0); Hemoglobin 11.7 g/dl (12.0-16.0); IG%MD 0.5 %; Imm Gran Abs Auto 0.03 X10*3/uL (0.00-0.03); Imm Gran Pct Auto 0.5 % (0.0-0.4); Lymph%MD 26.1 %; Lymphocytes Absolute Auto 1.7 X10*3/uL (1.2-4.9); Mean Corpuscular HGB Conc 32.1 g/dl (31.0-35.0); Mean Corpuscular Hemoglobin 27.7 pg (27.0-33.0); Mean Corpuscular Volume 86.3 fL (80.0-98.0); Mono%MD 10.2 %; NRBC Abs Auto 0.000 X10*3/uL (0.0-0.012); NRBC Pct Auto 0.0 /100WBC (0.0-0.2); Neut%MD 60.2 %; Platelet Count 317 X10*3/uL (160-400); Red Blood Count 4.22 X10*6/uL (4.20-5.50); White Blood Count 6.4 X10*3/uL (4.8-10.8)
[2025-01-14 18:50] LABS: Alanine Aminotransferase 19 U/L (0-31); Aspartate Amino Transferase 47 U/L (5-31); Estimated Glomerular Filt Rate > 60
[2025-01-14 22:10] LABS: Band Neutrophils Percent 15 % (3-5); Eosinophils Absolute Manual 0.1 X10*3/uL (0.0-0.4); Eosinophils Percent Manual 1 % (0-4); Lymphocytes Absolute Manual 1.5 X10*3/uL (1.2-4.9); Lymphocytes Percent Manual 24 % (20-40); Monocytes Absolute Manual 0.5 X10*3/uL (0.1-1.2); Monocytes Percent Manual 8 % (2-11); Myelocytes Absolute 0.1 X10*/uL; Myelocytes Percent 1 %; Neutrophils Absolute Manual 4.2 X10*3/uL (2.0-8.3); Neutrophils Percent Manual 51 % (45-73)
[2025-01-14 22:11] LABS: RBC Morphology NORMAL
== END 2025-01-14 13:19 | disposition home or self-care (01) ==
LOC: HO.HKASLDS 13:18
PROVIDERS: PCP Internal Medicine; Visit Provider Internal Medicine Rheumatology
DX: M05.9 Rheumatoid arthritis with rheumatoid factor, unspecified (principal); Z79.60 Long term (current) use of unspecified immunomodulators and immunosuppressants; Z79.899 Other long term (current) drug therapy
CPT/HCPCS: 36415; 82565; 84450; 84460; 85007; 85025; 85027; 85652; 86140

== ENCOUNTER 2025-02-05 10:43 | Outpatient (REF) | payer OTHER, SELFPAY ==
[2025-02-05 13:49] LABS: Alanine Aminotransferase 18 U/L (0-31); Aspartate Amino Transferase 35 U/L (5-31); Estimated Glomerular Filt Rate > 60
== END 2025-02-05 10:44 | disposition home or self-care (01) ==
LOC: HO.HKASLDS 10:43
PROVIDERS: PCP Internal Medicine; Visit Provider Internal Medicine Rheumatology
DX: M05.9 Rheumatoid arthritis with rheumatoid factor, unspecified (principal); M35.00 Sjogren syndrome, unspecified; K76.0 Fatty (change of) liver, not elsewhere classified; R74.01 Elevation of levels of liver transaminase levels; R05.3 Chronic cough; R21 Rash and other nonspecific skin eruption; Z79.899 Other long term (current) drug therapy; Z79.60 Long term (current) use of unspecified immunomodulators and immunosuppressants
CPT/HCPCS: 36415; 82565; 84450; 84460; 85652; 86140; 99212

== ENCOUNTER 2025-02-05 10:53 | Outpatient (AMB) | payer OTHER, SELFPAY ==
--- NOTE | 2025-02-05 11:24 | A.OFFVIS_ITS ---
Vital Signs 02/05/25 11:25 Height 5 ft 7 in Weight 382 lb 8.032 oz BMI 59.9 BP 120/70 Blood Pressure Location Rt brachial Position Sitting Pulse 88 Pulse Source Pulse Oximeter Pulse Oximetry (%) 97 Oxygen Delivery Method Room Air Intake Visit Reasons: 3 Months Intake Note: Patient presents today for a Seropositive rheumatoid arthritis follow up. Accompanied by: Self / Same As Patient Allergies hydromorphone Allergy (Mild, Verified 02/05/25 11:25) Anaphylaxis ibuprofen Allergy (Mild, Verified 02/05/25 11:25) Rash HPI HPI 3 Months: Details: Improve joint pain since Depo-Medrol from last visit. She is more functional. She is having lesions in her legs that are pruritic for few months. They keep her up at night. She is unable to sleep because she is coughing at night. She uses albuterol multiple times. She also uses a CPAP machine. [facility] Surgical History H/O heart surgery Family History Mother Heart failure Diabetes High cholesterol Hypertension Sister Diabetes Heart failure High cholesterol Hypertension Social History Household Members: Family Alcohol intake: never Patient Tobacco Use Status: Current everyday Tobacco user Cigarettes Per Day: 2 Physical Exam Vital Signs: Last Vital Signs Pulse 88 02/05/25 11:25 BP 120/70 02/05/25 11:25 Pulse Ox 97 02/05/25 11:25 Oxygen Delivery Method Room Air 02/05/25 11:25 BMI result Body Mass Index 59.9 Const Other: General: Comfortable, wheezing when she talks CVS: RRR Respiratory: clear to auscultation bilaterally. Good respiratory effort Skin: No lesions seen MSK: No tenderness of joints in hands. Bilateral elbow flexion contracture. Shoulder abduction 170 degrees bilateral with limited internal external rotation both actively and passively. Bilateral ankles and MTP synovitis with tenderness on palpation. Assessment & Plan Assessment & Plan (1) Seropositive rheumatoid arthritis: Comment: Inflammatory arthritis in hands has resolved with Depo-Medrol and compliance with DMARD. But she continues to have synovitis in bilateral ankles and MTPs. Transaminitis is trending down on most recent labs from earlier in the month. She has had multiple CT abdomen/pelvis with IV contrast since April [address] [facility] April CT abdomen/pelvis reveals hepatic steatosis but repeat CTs in May and June 2024 do not reveal liver or gallbladder pathology to explain transaminitis. Contraindication to methotrexate and leflunomide due to transaminitis. She was unable to go to ultrasound appointment in September and GI evaluation earlier in the month because she did not have transportation. 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 She was previously evaluated by me at the [facility] when she was 21 weeks gestation. She was found to have high titer positive LUPE 1:1280, positive anti SSA and SSB antibodies and highly elevated ESR. She did not have any lupus specific antibodies or activity markers at the time. 01/2020 she was referred to ENT for minor salivary gland biopsy as she had malar rash, hair loss and dry mouth. Patient was lost to follow-up. Code(s): M05.9 - Rheumatoid arthritis with rheumatoid factor, unspecified Category: Medical Plan: Continue hydroxychloroquine 400 mg daily. I have asked her to schedule baseline eye exam for hydroxychloroquine surveillance Increase Sulfasalazine to 1 g twice a day Labs for drug monitoring on high-risk medication due every 3 months We will redo PT1 form to include [facility] and [facility] to allow her to have transportation to her appointments. I have asked her to reschedule ultrasound and GI evaluation. Return to clinic in 3 months (2) Secondary Sjogren's syndrome: Code(s): M35.00 - Sjogren syndrome, unspecified Category: Medical Plan: Monitor clinically (3) Hepatic steatosis: Comment: On CT abdomen and pelvis with contrast April 2024 but not present on repeat CT scans May and June. She missed her appointment in September. She also missed GI appointment earlier this month because she did not have transportation. Code(s): K76.0 - Fatty (change of) liver, not elsewhere classified Category: Medical Plan: I have asked her to reschedule her appointment for liver ultrasound for further evaluation and GI appointment We will redo PT1 form for both [facility] and [facility] to allow her to have transportation to her appointments (4) Transaminitis: Comment: Improving on most recent labs from January 2025. ALT has normalized. Code(s): R74.01 - Elevation of levels of liver transaminase levels Category: Medical Plan: See above (5) Cough: Comment: Exacerbated at night. Likely related to uncontrolled asthma. She uses albuterol PRN. She is not on any maintenance regimen for asthma. Code(s): R05.9 - Cough, unspecified Category: Medical Qualifiers: Cough type: chronic Qualified Code(s): R05.3 - Chronic cough Plan: Follow up with PCP for management of asthma for optimization of medical management. She has found relief with using nebulizer in the past (6) Rash: Comment: Pruritic in lower extremities. Unclear etiology. Code(s): R21 - Rash and other nonspecific skin eruption Category: Medical Plan: Follow up with PCP for evaluation Orders: Orders Complete Blood Count Auto Diff 3 Months Z79.899 - Other assisted (current) drug therapy Alanine Aminotransferase 3 Months Z79.899 - Other terminal makeup operator (current) drug therapy Aspartate Amino Transferase 3 Months Z79.899 - Other assisted (current) drug therapy Creatinine 3 Months Z79.899 - Other terminal makeup operator (current) drug therapy C Reactive Protein 3 Months Z79.899 - Other terminal makeup operator (current) drug therapy Erythrocyte Sedimentation Rate 3 Months Z79.899 - Other terminal makeup operator (current) drug therapy Medications: Changed From sulfasalazine 0.5 grams PO BID 30 days 60 tabs 2RF To sulfasalazine 1 g (2 x 500 mg) PO BID 120 tabs 1RF 30 days Discontinued prednisone Take with food Discontinued Reason: Doctor's Order 15 mg (3 x 5 mg) PO DAILY 90 days 270 tabs 0RF Coding Level of Care Code Est Pt Level 4 (73180) Complex EM visit Add On G2211 Diagnoses Seropositive rheumatoid arthritis M05.9 Secondary Sjogren's syndrome M35.00 Hepatic steatosis K76.0 Transaminitis R74.01 Chronic cough R05.3 Cough type: chronic Rash R21
[2025-02-05 11:25] VITALS: BP 120/70; PULSE 88; O2SAT 97; BMI 59.9
== END 2025-02-05 12:42 | disposition home or self-care (01) ==
LOC: HO.RHES 10:54
PROVIDERS: PCP Internal Medicine; Visit Provider Internal Medicine Rheumatology
DX: M05.9 Rheumatoid arthritis with rheumatoid factor, unspecified (principal); M35.00 Sjogren syndrome, unspecified; K76.0 Fatty (change of) liver, not elsewhere classified; R74.01 Elevation of levels of liver transaminase levels; R05.3 Chronic cough; R21 Rash and other nonspecific skin eruption
CPT/HCPCS: 99214; G2211